=== PATIENT | female | born 1950 | race Caucasian/White ===

== ENCOUNTER 2016-11-22 08:26 | Emergency (ER) | payer OTHER ==
[2016-11-22 09:10] LABS: Hematocrit 40 % (35-47); Hemoglobin 13.2 g/dl (12.0-16.0); Mean Corpuscular HGB Conc 33 g/dl (31-36); Mean Corpuscular Hemoglobin 31 pg (27-31); Mean Corpuscular Volume 93 fL (80-97); Mean Platelet Volume 8 um3 (7.4-10.4); Red Blood Count 4.32 10^6/ul (4.0-5.4); Red Cell Distribution Width 13 % (10.5-15); White Blood Count 11.8 10^3/ul (3.5-10.8)
[2016-11-22 09:22] LABS: ALT 23 U/L (7-52); AST 27 U/L (13-39); Alkaline Phosphatase 42 U/L (34-104); Anion Gap 6 mmol/L (2-11); BUN/Creatinine Ratio 16.3 (8-20); Blood Urea Nitrogen 17 mg/dL (6-24); CO2 Carbon Dioxide 26 mmol/L (22-32); Calcium 9.6 mg/dL (8.6-10.3); Chloride 105 mmol/L (101-111); Creatine Kinase 168 U/L (10-223); EGFR African American 68.2 (>60); Glucose 115 mg/dL (70-100); Sodium 137 mmol/L (133-145)
--- NOTE | 2016-11-22 09:35 | RAD ---
HISTORY: Syncope COMPARISONS: None TECHNIQUE: Multiple contiguous axial CT scans were obtained of the head without intravenous contrast. FINDINGS: HEMORRHAGE/INFARCT: There is no hemorrhage or acute infarct. MASSES/SHIFT: There is no mass or shift. EXTRA-AXIAL SPACES: There are no extra-axial fluid collections. SULCI AND VENTRICLES: The sulci and ventricles are normal in size and position for the patient's stated age. CEREBRUM: There are no focal parenchymal abnormalities. BRAINSTEM: There are no focal parenchymal abnormalities. CEREBELLUM: There are no focal parenchymal abnormalities. VESSELS: The vessels are grossly normal. PARANASAL SINUSES: The paranasal sinuses are clear. ORBITS: The orbits are unremarkable. BONES AND SOFT TISSUE: No bone or soft tissue abnormalities are noted. OTHER: None IMPRESSION: NO ACUTE INTRACRANIAL PATHOLOGY.
[2016-11-22 09:37] LABS: Alcohol < 10 mg/dL (<10)
[2016-11-22 09:47] LABS: TSH (Thyroid Stimulating Horm) 2.66 mcIU/mL (0.34-5.60)
--- NOTE | 2016-11-22 09:51 | RAD ---
INDICATION: Left ankle pain COMPARISON: None TECHNIQUE: AP, lateral, and oblique views were obtained. FINDINGS: The bony structures, joint spaces, and soft tissues are normal for age. IMPRESSION: NEGATIVE EXAMINATION.
--- NOTE | 2016-11-22 09:54 | RAD ---
INDICATION: LEFT wrist pain post fall. COMPARISON: No relevant prior exams available on the [facility] [place] PACS for comparison. TECHNIQUE: AP, lateral, and oblique views LEFT wrist. REPORT: Bone density appears decreased corresponding with osteopenia on previous DEXA scan. Subtle impaction fracture at the distal metaphysis of the radius with disproportionate dorsal impaction with resulting loss of the normal volar tilt of the distal radioarticular surface. No definitive extension of the fracture to the articular surfaces. Negative for associated fracture of the ulna. Negative for dislocation. Soft tissue swelling most prominent over the dorsal aspect. IMPRESSION: Subtle impaction fracture at the distal metaphysis of the radius without definitive extension to the articular surface.
--- NOTE | 2016-11-22 09:55 | RAD ---
HISTORY: Syncope COMPARISONS: None VIEWS: 4: Frontal dual-energy and lateral views of the chest. FINDINGS: CARDIOMEDIASTINAL SILHOUETTE: The cardiomediastinal silhouette is normal. HARLEY: The harley are normal. PLEURA: The costophrenic angles are sharp. No pleural abnormalities are noted. LUNG PARENCHYMA: There is hyperinflation with flattening of the diaphragm and expansion of the AP diameter of the chest. ABDOMEN: The upper abdomen is clear. There is no subphrenic gas. BONES AND SOFT TISSUES: No bone or soft tissue abnormalities are noted. OTHER: None. IMPRESSION: HYPERINFLATION, CONSISTENT WITH COPD. NO ACTIVE CARDIOPULMONARY DISEASE.
--- NOTE | 2016-11-22 09:58 | RAD ---
INDICATION: Left foot injury COMPARISON: None TECHNIQUE: AP, lateral, and oblique views were obtained. FINDINGS: There is a minimally distracted fracture the first cuneiform. There are no other fractures. There is swelling but the medial midfoot. The bony structures, joint spaces, and soft tissues otherwise normal. IMPRESSION: FRACTURE FIRST CUNEIFORM.
[2016-11-22 13:20] VITALS: BP 108/62
--- NOTE | 2016-11-22 18:42 | ED ---
Merrick Borges Alfonso, scribed for Elia Sin MD on 11/22/16 at 0906 . Complex/Multi-Sys Presentation - HPI Summary HPI Summary: This patient is a 66 year old F [facility] accompanied by for a fall at 2030 last night. She states I was walking with a cane and my left foot gave out and she hurt her left wrist. Pt denies head trauma. The fall was witness by her who states she lost all control. Pt rates the pain 6/ 10 in severity. Symptoms aggravated by ambulation and alleviated by nothing. Pt reports left wrist pain, left wrist bruising, left foot pain, left foot swelling , diaphoresis, syncope, and lightheadedness. Pt denies SOB, CP, and palpitations. - History Of Current Complaint Chief Complaint: EDGeneral Time Seen by Provider: 11/22/16 08:39 Hx Obtained From: Patient Onset/Duration: Lasting Hours - 2029 last night, Still Present Timing: Constant Severity Currently: Moderate Severity Initially: Moderate Location: Pain At: - Left foot and left wrist Aggravating Factor(s): ambulation Alleviating Factor(s): nothing Associated Signs And Symptoms: Positive: Other - Positive fall, left wrist pain , left wrist bruising, left foot pain, left foot swelling, diaphoresis, syncope , and lightheadedness; negative SOB, CP, and palpitations. - Allergies/Home Medications Allergies/Adverse Reactions: Allergies Allergy/AdvReac Type Severity Reaction Status Date / Time Erythromycin Allergy Unknown Verified 11/22/16 08:51 Reaction Details PMH/Surg Hx/FS Hx/Imm Hx Musculoskeletal History: Reports: Hx Osteoporosis - Cancer History Hx Chemotherapy: No Hx Radiation Therapy: No - Immunization History Date of Tetanus Vaccine: UTD Date of Influenza Vaccine: UTD Infectious Disease History: No Infectious Disease History: Denies: Traveled Outside the [place] in Last 30 Days - Family History Known Family History: Positive: Hypertension, Other - Cancers - Social History Alcohol Use: Occasionally Substance Use Type: Reports: None Smoking Status (MU): Never Smoked Tobacco Review of Systems Positive: Skin Diaphoresis Negative: Palpitations, Chest Pain Negative: Shortness Of Breath Positive: Other - Positive fall, swelling at left foot, left foot pain, left wrist pain, Positive: Bruising - Left wrist Neurological: Other - Positive lightheadedness Positive: Syncope All Other Systems Reviewed And Are Negative: Yes Physical Exam - Summary Physical Exam Summary: VITAL SIGNS: Reviewed. GENERAL: Patient is a well-developed and nourished female who is lying comfortable in the stretcher. Patient is not in any acute respiratory distress. HEAD AND FACE: Normocephalic EYES: PERRLA, EOMI x 2. EARS: Hearing grossly intact. MOUTH: Oropharynx within normal limits. NECK: Supple, trachea is midline, no adenopathy, no JVD, no carotid bruit. CHEST: Symmetric, no tenderness at palpation LUNGS: Clear to auscultation bilaterally. No wheezing or crackles. CVS: Regular rate and rhythm, S1 and S2 present, no murmurs or gallops appreciated. ABDOMEN: Soft, non-tender. Bowel sounds are normal. No abdominal abnormal pulsations. EXTREMITIES: Left ankle swelling and left wrist swelling. Reduced ROM of left ankle and left wrist. No deformities. NEURO: Alert and oriented x 3. No acute neurological deficits. Speech is normal and follows commands. SKIN: Dry and warm Triage Information Reviewed: Yes Vital Signs On Initial Exam: Initial Vitals Temp Pulse Resp BP Pulse Ox 97.8 F 72 18 110/70 99 11/22/16 08:32 11/22/16 08:32 11/22/16 08:32 11/22/16 08:32 11/22/16 08:32 Vital Signs Reviewed: Yes - Marjan Coma Scale Coma Scale Total: 15 Diagnostics - Vital Signs Vital Signs Temp Pulse Resp BP Pulse Ox 11/22/16 08:43 97.8 F 72 18 110/70 99 11/22/16 08:32 97.8 F 72 18 110/70 99 - Laboratory Lab Results: Lab Results 11/22/16 11/22/16 11/22/16 Range/Units 08:57 08:57 08:57 WBC 11.8 H (3.5-10.8) 10^3/ul RBC 4.32 (4.0-5.4) 10^6/ul Hgb 13.2 (12.0-16.0) g/dl Hct 40 (35-47) % MCV 93 (80-97) fL MCH 31 (27-31) pg MCHC 33 (31-36) g/dl RDW 13 (10.5-15) % Plt Count 247 (150-450) 10^3/ul MPV 8 (7.4-10.4) um3 Neut % (Auto) 89.2 H (38-83) % Lymph % (Auto) 4.8 L (25-47) % Lamb % (Auto) 5.4 (1-9) % Eos % (Auto) 0.2 (0-6) % Baso % (Auto) 0.4 (0-2) % Absolute Neuts (auto) 10.6 H (1.5-7.7) 10^3/ul Absolute Lymphs (auto) 0.6 L (1.0-4.8) 10^3/ul Absolute Monos (auto) 0.6 (0-0.8) 10^3/ul Absolute Eos (auto) 0 (0-0.6) 10^3/ul Absolute Basos (auto) 0 (0-0.2) 10^3/ul Absolute Nucleated RBC 0.01 10^3/ul Nucleated RBC % 0.1 Sodium 137 (133-145) mmol/L Potassium 4.0 (3.5-5.0) mmol/L Chloride 105 (101-111) mmol/L Carbon Dioxide 26 (22-32) mmol/L Anion Gap 6 (2-11) mmol/L BUN 17 (6-24) mg/dL Creatinine 1.04 H (0.51-0.95) mg/dL Est GFR ( Amer) 68.2 (>60) Est GFR (Non-Af Amer) 53.0 (>60) BUN/Creatinine Ratio 16.3 (8-20) Glucose 115 H (70-100) mg/dL Lactic Acid 0.8 (0.5-2.0) mmol/L Calcium 9.6 (8.6-10.3) mg/dL Magnesium 2.0 (1.9-2.7) mg/dL Total Bilirubin 0.80 (0.2-1.0) mg/dL AST 27 (13-39) U/L ALT 23 (7-52) U/L Alkaline Phosphatase 42 (34-104) U/L Total Creatine Kinase 168 (10-223) U/L Troponin I 0.00 (<0.04) ng/mL B-Natriuretic Peptide ( - 100) pg/mL Total Protein 7.0 (6.4-8.9) g/dL Albumin 4.0 (3.2-5.2) g/dL Globulin 3.0 (2-4) g/dL Albumin/Globulin Ratio 1.3 (1-3) TSH 2.66 (0.34-5.60) mcIU/mL Serum Alcohol < 10 (<10) mg/dL 11/22/16 Range/Units 08:57 WBC (3.5-10.8) 10^3/ul RBC (4.0-5.4) 10^6/ul Hgb (12.0-16.0) g/dl Hct (35-47) % MCV (80-97) fL MCH (27-31) pg MCHC (31-36) g/dl RDW (10.5-15) % Plt Count (150-450) 10^3/ul MPV (7.4-10.4) um3 Neut % (Auto) (38-83) % Lymph % (Auto) (25-47) % Lamb % (Auto) (1-9) % Eos % (Auto) (0-6) % Baso % (Auto) (0-2) % Absolute Neuts (auto) (1.5-7.7) 10^3/ul Absolute Lymphs (auto) (1.0-4.8) 10^3/ul Absolute Monos (auto) (0-0.8) 10^3/ul Absolute Eos (auto) (0-0.6) 10^3/ul Absolute Basos (auto) (0-0.2) 10^3/ul Absolute Nucleated RBC 10^3/ul Nucleated RBC % Sodium (133-145) mmol/L Potassium (3.5-5.0) mmol/L Chloride (101-111) mmol/L Carbon Dioxide (22-32) mmol/L Anion Gap (2-11) mmol/L BUN (6-24) mg/dL Creatinine (0.51-0.95) mg/dL Est GFR ( Amer) (>60) Est GFR (Non-Af Amer) (>60) BUN/Creatinine Ratio (8-20) Glucose (70-100) mg/dL Lactic Acid (0.5-2.0) mmol/L Calcium (8.6-10.3) mg/dL Magnesium (1.9-2.7) mg/dL Total Bilirubin (0.2-1.0) mg/dL AST (13-39) U/L ALT (7-52) U/L Alkaline Phosphatase (34-104) U/L Total Creatine Kinase (10-223) U/L Troponin I (<0.04) ng/mL B-Natriuretic Peptide 49 ( - 100) pg/mL Total Protein (6.4-8.9) g/dL Albumin (3.2-5.2) g/dL Globulin (2-4) g/dL Albumin/Globulin Ratio (1-3) TSH (0.34-5.60) mcIU/mL Serum Alcohol (<10) mg/dL Result Diagrams: 11/22/16 08:57 11/22/16 08:57 Lab Statement: Any lab studies that have been ordered have been reviewed, and results considered in the medical decision making process. - Radiology Foot X-ray Radiology Interpretation Completed By: Radiologist - fracture first cuneiform CXR Radiology Interpretation Completed By: Radiologist - HYPERINFLATION, CONSISTENT WITH COPD. NO ACTIVE CARDIOPULMONARY DISEASE. Wrist X-Ray Radiology Interpretation Completed By: Radiologist - Subtle impaction fracture at the distal metaphysis of the radius without definitive extension to the articular surface. Ankle X-Ray Radiology Interpretation Completed By: Radiologist - negative examination - CT Brain CT CT Interpretation Completed By: Radiologist - NO ACUTE INTRACRANIAL PATHOLOGY - EKG 0848 Cardiac Rate: NL - BPM 80 EKG Rhythm: Sinus Rhythm EKG Interpretation: No ST elevation Re-Evaluation - Re-Evaluation First Eval Re-Evaluation Time: 11:55 Change: Unchanged Comment: Discussed imaging and lab results with pt. Complex Multi-Symp Course/Dx Course Of Treatment: This patient is a 66 year old F presenting to [facility] accompanied by for a fall at 2030 last night. She states I was walking with a cane and my left foot gave out and she hurt her left wrist. Pt denies head trauma. The fall was witness by her who states she lost all control. Pt rates the pain 6/10 in severity. Symptoms aggravated by ambulation and alleviated by nothing. Pt reports left wrist pain, left wrist bruising, left foot pain, left foot swelling, diaphoresis, syncope, and lightheadedness. Pt denies SOB, CP, and palpitations. Assessment/Plan: Test results show WBC of 11.6, creatinine of 0.04 and glucose of 115. I did a brain CT because the patient had a syncopal episode. I believe it was likely vasovagal due to the patients age. Brain CT reveals NO ACUTE INTRACRANIAL PATHOLOGY. Chest X-ray reveals HYPERINFLATION, CONSISTENT WITH COPD. NO ACTIVE CARDIOPULMONARY DISEASE. Foot X-ray reveals fracture first cuneiform. Wrist X-ray reveals Subtle impaction fracture at the distal metaphysis of the radius without definitive extension to the articular surface. Ankle X-ray reveals negative examination. In the ED course the patient was given IV fluids. I offered the patient admission due to the syncopal episode, however the patient refused since there were no abnormalities in the labs and brain CT. Patient will be discharged home and with present at all times. Air cast placed on the left foot and splint placed on left wrist for her fractures. At this point, patient will be discharged home with PCP and orthopedic follow ups. Patient prefers aircast to posterior splint because she feels more conformable. Patient is hemodynamically stable and A&Ox3. She will be sent home with crutches. I discussed all the findings and test results with the patient. Patient was instructed to return to the emergency room immediately if any of the symptoms return or worsens. Patient understands and agrees. Plan of care was discussed with the patient and patient understands and agrees with the plan of care. All questions were answered at patient satisfaction. There were no further complaints or concerns. Patient is alert and oriented x 3. Patient vital signs are stable. Patient is to follow up with primary care physician in the next 2 to 3 days. Patient understands and agrees. - Diagnoses Differential Diagnoses/HQI/PQRI: Cardiac Ischemia, CVA Provider Diagnoses: Syncope, Foot fracture, left, Left wrist fracture Discharge - Discharge Plan Condition: Stable Disposition: HOME Patient Education Materials: Syncope (ED), Foot Fracture in Adults (ED), Wrist Fracture in Adults (ED) Referrals: Precious Menard MD [Primary Care Provider] - 2 Days Francesca Soriano MD [Medical Doctor] - The documentation as recorded by the Merrick rios Alfonso accurately reflects the service I personally performed and the decisions made by , Elia Sin MD.
== END 2016-11-22 13:20 | disposition home or self-care (01) ==
LOC: ED 08:26
DX: R55 Syncope and collapse (principal); S62.102A Fracture of unspecified carpal bone, left wrist, initial encounter for closed fracture; S92.902A Unspecified fracture of left foot, initial encounter for closed fracture; W19.XXXA Unspecified fall, initial encounter; Y93.01 Activity, walking, marching and hiking; Y92.89 Other specified places as the place of occurrence of the external cause; M79.672 Pain in left foot; R60.0 Localized edema
CPT/HCPCS: 36415; 70450; 71020; 80053; 80320; 82550; 83605; 83735; 83880; 84443; 84484; 85025; 93005; 99283; G0480

== ENCOUNTER 2019-06-23 11:36 | Day surgery (SDC) | payer OTHER ==
--- NOTE | 2019-06-22 13:55 | HP ---
AMENDED REPORT NOW INCLUDES DESIGNATED COSIGNER - ESIGNED BEFORE ADJUSTMENTS PREOPERATIVE HISTORY AND PHYSICAL: DATE OF SURGERY/ADMISSION: 06/23/19 ATTENDING SURGEON: Francesca Llamas MD.* (DICTATED BY CAM REYES) PROCEDURE: Open reduction internal fixation, left wrist. DATE OF OFFICE VISIT/ENCOUNTER: 06/22/19 HISTORY OF PRESENT ILLNESS: This is a 68-year-old female who has a history of a left distal radius fracture about 3 years ago. It was treated by Dr. Soriano at that time nonsurgically and it healed very well with just a slight amount of loss of palmar tilt. She refractured the same wrist about a week and a half ago. She saw Dr. Shrestha. He did a closed reduction and today on her followup , her x-ray showed some loss of reduction and there was about 30 degrees of apex volar angulation. The fracture is intraarticular. After review of the x- rays and evaluation of the patient, Dr. Llamas is recommending surgical intervention for best outcome and the patient has consented to proceed. PAST MEDICAL HISTORY: 1. Hypercholesterolemia. 2. Hypertension. 3. 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 4. Fibromyalgia. 5. Sjogren syndrome. 6. Marck thyroiditis. 7. Raynaud disease. PAST SURGICAL HISTORY: 1. Right knee. 2. Myomectomy. 3. Tonsillectomy. 4. Right ring finger. CURRENT MEDICATIONS: 1. Atorvastatin calcium 40 mg daily. 2. Calcium 1000 mg daily. 3. Diclofenac sodium 75 mg twice a day. 4. Enalapril maleate 10 mg one tab q.a.m., one tab q.p.m. 5. Glucosamine chondroitin 750/600 mg daily. 6. Hydroxychloroquine sulfate 200 mg twice a day. 7. [place] 3 1000 mg daily. 8. Pilocarpine HCl 5 mg 3 times a day. 9. Vitamin D 1000 units daily. ALLERGIES: ERYTHROMYCIN, reaction unknown. FAMILY HISTORY: Hypertension, heart disease, stroke, cancer, and rheumatoid arthritis. 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 She denies tobacco use and recreational drug use. She drinks wine on a daily basis usually with dinner. REVIEW OF SYSTEMS: Positive for right knee swelling related to her connective tissue disease, otherwise negative for general, cephalic, cardiovascular, respiratory, GI, , other musculoskeletal, integumentary, endocrine, neurologic and hematologic symptoms. Infectious Disease: Negative for MRSA, hepatitis C, HIV. PHYSICAL EXAMINATION GENERAL: Well-developed, well-nourished 68-year-old female in no acute distress. VITAL SIGNS: Height 5 feet 5 inches, weight 132 pounds. Pulse rate 72, blood pressure 120/70. HEENT: Normocephalic, atraumatic. Pupils are equal, round, and reactive to light and accommodation. Extraocular movements are intact. Throat is clear. NECK: Supple. No palpable lymph nodes. PULMONARY: Lungs are clear to auscultation bilaterally. No wheezes, rales or rhonchi. CARDIOVASCULAR: Regular rate and rhythm. S1, S2. No murmurs, rubs or gallop. No edema. ABDOMEN: Positive bowel sounds, soft, nontender. MUSCULOSKELETAL: On exam of her left wrist, her arm is enclosed in a sugar tong splint. She has minimal swelling in her fingers. She has good motion in her fingers. Neurovascular function is intact. Skin is intact. NEUROLOGIC: Alert and oriented x3. Cranial nerves II through XII are intact. Sensation is intact to light touch. IMAGING STUDIES: X-rays, AP, lateral, and oblique of the left wrist show a pretty significant apex volar angulation, loss of height and some distal ulnar prominence. IMPRESSION: Left distal radius fracture with loss of reduction. PLAN/RECOMMENDATIONS: The patient is scheduled to undergo an open reduction internal fixation of the left wrist with Dr. Llamas on 06/23/19. She will return to the office 10 days postop for followup and suture removal. A prescription for Everest was e-scribed to the patient's pharmacy for postoperative pain management. CAM REYES [id number]/[facility] #: [id number] MTDJenny
[~2019-06-23 11:36] MED LIST: Buffered Lidocaine 1% SYRIN* 1 ML/SYRINGE INTRADERM ONE; Dexamethasone IV* 4 MG/ML 1 ML (4 MG) IV SLOW PU ONE; Famotidine IV* 10 MG/ML 2 ML (20 mg) IV ONE; Lactated Ringers 1000 ML Bag* 1,000 ML IV SCH
[2019-06-23] MEDS ORDERED: Famotidine IV* 10 MG/ML 2 ML (20 mg) ONE (11:48)
[2019-06-23] MEDS ORDERED: ceFAZolin 2 GM PREMIX in ORs 2 GM/50 ML BAG ONE (11:48)
[2019-06-23] MEDS ORDERED: Dexamethasone IV* 4 MG/ML 1 ML (4 MG) ONE (11:48)
[2019-06-23] MEDS ORDERED: Bupivacaine 0.5% SDV PF* 30ML VIAL ONE (11:54)
[2019-06-23] MEDS ORDERED: Chloroprocaine 2%* 20 ML VIAL ONE (12:07)
[2019-06-23] MEDS ORDERED: fentaNYL* 50 MCG/ML 2 ML VIAL (100 MCG VIAL) ONE (12:10)
[2019-06-23] MEDS ORDERED: Midazolam* 1 MG/ML 2 ML VIAL (2 MG) ONE (12:10)
[2019-06-23 14:33] VITALS: BP 153/71
--- NOTE | 2019-06-24 01:44 | OP ---
DATE OF OPERATION: 06/23/19 [facility] DATE OF : 50 SURGEON: Francesca Llamas MD UNIFORM CAP OPERATOR: CAM Bunn ANESTHESIA: Nerve block. PRE-OP DIAGNOSIS: Distal radius fracture on the left. POST-OP DIAGNOSIS: Distal radius fracture on the left. OPERATIVE PROCEDURE: Open reduction internal fixation of the left distal radius. ESTIMATED BLOOD LOSS: Zero. TOURNIQUET TIME: About 45 minutes. INDICATIONS FOR PROCEDURE: Pau is a 68-year-old female who suffered a distal radius fracture over 3 years ago that healed fine with a slight amount of loss of palmar tilt. She refractured the same wrist about 10 days ago. Initial closed reduction was satisfactory, but the patient lost reduction and presents now for open reduction internal fixation. DESCRIPTION OF PROCEDURE: The patient was brought to the operating room, was given a block anesthetic, and the skin of her left upper extremity was prepped and draped in the usual sterile fashion. The upper extremity was exsanguinated and the tourniquet elevated to 250 mmHg. A longitudinal incision was made overlying the FCR tendon. We dissected through the FCR tendon sheath both superficial and deep sharply with a knife. The FPL muscle was then retracted ulnarly. The pronator quadratus muscle was incised and subperiosteally dissected off the distal radius. The fracture fragments were reduced and then secured with a Synthes 2.4 variable angle plate with 4 distal and 3 proximal screws. The position of the hardware and fracture fragments was checked on the C-arm in the AP and lateral views and found to be satisfactory. The wound was irrigated. The pronator quadratus was repaired over the plate and then the FCR tendon sheath was repaired, both with 2-0 Vicryl suture. The skin edges were reapproximated with 4-0 nylon suture. The wound was dressed with Xeroform, 4x4 , Webril, and a volar splint. The patient tolerated the procedure well and was brought to the recovery room in good condition. [id number]/[facility] #: [id number] MTDD
== END 2019-06-23 14:37 | disposition home or self-care (01) ==
LOC: OREAST 11:36
PROVIDERS: ATTEND Orthopaedic Surgery
DX: S52.572A Other intraarticular fracture of lower end of left radius, initial encounter for closed fracture (principal); E78.00 Pure hypercholesterolemia, unspecified; I10 Essential (primary) hypertension; M79.7 Fibromyalgia; M35.00 Sjogren syndrome, unspecified; E06.3 Autoimmune thyroiditis; I73.00 Raynaud's syndrome without gangrene; M35.9 Systemic involvement of connective tissue, unspecified; X58.XXXA Exposure to other specified factors, initial encounter; Y92.9 Unspecified place or not applicable
CPT/HCPCS: 76000; C1713; C1776; J0690; J1100; J2250; J2400; J3010; J3490

== ENCOUNTER 2024-03-03 11:13 | Observation (INO) ==
[~2024-03-03 11:13] MED LIST changes: -Buffered Lidocaine 1% SYRIN* 1 ML/SYRINGE INTRADERM ONE; -Dexamethasone IV* 4 MG/ML 1 ML (4 MG) IV SLOW PU ONE; -Famotidine IV* 10 MG/ML 2 ML (20 mg) IV ONE; -Lactated Ringers 1000 ML Bag* 1,000 ML IV SCH; +NS 0.45% 1000 ml BAG 1,000 ML IV SCH; +Naloxone 0.4 mg VIAL 0.4 mg/ml 1 ml VIAL IV PRN; +Ondansetron 4 mg VIAL 2 MG/ML 2 ml VIAL IV PRN; +fentaNYL 100 mcg/2 ml 50 MCG/ML VIAL IV PRN
[2024-03-03] MEDS ORDERED: ceFAZolin 2 GM PREMIX 2 GM/50 ML BAG ONE (11:42)
[2024-03-03] MEDS ORDERED: Tranexamic Acid 1 GM/100ML BAG 2,000 MG/200 ML BAG IV ONE (11:42)
[2024-03-03 12:09] LABS: Rapid COVID-19 Molecular Undetected (Undetected)
[2024-03-03] MEDS ORDERED: ROPIVACAINE 5 MG/ML 30 ML BTL (0.5%) ONE ×2 (13:31→14:00)
[2024-03-03] MEDS ORDERED: fentaNYL 100 mcg/2 ml 50 MCG/ML VIAL ONE ×2 (14:00→16:37)
[2024-03-03] MEDS ORDERED: Dexamethasone IV 4 MG/ML VIAL 1 ml VIAL ONE (14:00)
[2024-03-03] MEDS ORDERED: Midazolam 2 mg/2 ml VIAL 1 mg/ml 2 ml VIAL (2 mg) ONE ×2 (14:00→14:06)
[2024-03-03] MEDS ORDERED: Lidocaine 2% PF 5 ML VIAL ONE (14:05)
[2024-03-03] MEDS ORDERED: fentaNYL 250 mcg/5 ml 50 MCG/ML 5 ml VIAL (250 MCG) ONE (14:06)
[2024-03-03] MEDS ORDERED: Ondansetron 4 mg VIAL 2 MG/ML 2 ml VIAL ONE (15:10)
[2024-03-03] MEDS ORDERED: Lactulose 30 ml UDC PO PRN (15:24)
[2024-03-03] MEDS ORDERED: Ondansetron 4 mg VIAL 2 MG/ML 2 ml VIAL IV PRN (15:24)
[2024-03-03] MEDS ORDERED: Morphine 2 MG/ML SYRINGE IV PRN (15:24)
[2024-03-03] MEDS ORDERED: Magnesium Hydroxide LIQ 30 ML UDC PO PRN (15:24)
[2024-03-03] MEDS ORDERED: Calcium Carb (TUMS) 500 mg CHEW TAB PO PRN (15:24)
[2024-03-03] MEDS ORDERED: Ondansetron ODT 4 mg TAB 4 MG TAB PO PRN (15:24)
[2024-03-03] MEDS ORDERED: Propofol 10 MG/ML 20 ML BTL ONE ×2 (15:52→16:45)
[2024-03-03] MEDS ORDERED: ceFAZolin 2 GM PREMIX 2 GM/50 ML BAG IV SCH (16:00)
[2024-03-03] MEDS: Lactated Ringers 1000 ml BAG 1,000 ML IV SCH ×2 (18:32→23:41)
[2024-03-03] MEDS ORDERED: PEG PROPYLENE GLYCOL LEFT EYE PRN (19:32)
[2024-03-03] MEDS: CMC:Pilocarpine 5 mg TAB (NF) PO SCH (20:48)
[2024-03-03] MEDS: Magnesium Hydroxide LIQ 30 ML UDC PO SCH (20:53)
[2024-03-03] MEDS ORDERED: Polyethyl Glycol/Propylene Gly OPHTH.SOLN LEFT EYE PRN (22:21)
[2024-03-03] MEDS: ceFAZolin 2 GM PREMIX 2 GM/50 ML BAG IV SCH (23:04)
[2024-03-03] MEDS: Acetaminophen IV 1 GM/100ML 1,000 MG/100 ML BAG IV ONE (23:41)
[2024-03-03] MEDS: Buffered Lidocaine 1% SYRIN 1 ml INTRADERM ONE (23:41)
[2024-03-04 07:08] LABS: Hematocrit 30.8 % (35-45); Hemoglobin 10.6 g/dL (11.5-14.3); Mean Platelet Volume 8.2 fL (7.5-11.2); Platelet Count 174 10^3/uL (150-450)
[2024-03-04 07:21] LABS: Calcium 8.2 mg/dL (8.6-10.3); Creatinine, Serum 0.8 mg/dL (0.51-0.95); Potassium 4.5 mmol/L (3.5-5.0); eGFR CKD-EPI 77.8 (>60)
[2024-03-04] MEDS: Vitamin THERAPEUTIC TAB PO SCH (09:36)
[2024-03-04] MEDS: Cholecalciferol (VIT D3) 1,000 unit TAB PO SCH (09:36)
[2024-03-04 14:28] VITALS: BP 125/62
== END 2024-03-04 15:43 | disposition home or self-care (01) ==
LOC: OR 11:13 → SSU 11:13
PROVIDERS: ADMIT Orthopaedic Surgery Adult Reconstructive Orthopaedic Surgery; ATTEND Orthopaedic Surgery Adult Reconstructive Orthopaedic Surgery